=== PATIENT | female | born 1930 | race Caucasian/White ===

== ENCOUNTER → 2016-02-16 | Outpatient (CLI) | payer MEDICARE, BC ==
--- NOTE | 2016-02-16 08:18 | CT ---
EXAMINATION TYPE: CT abdomen wo con DATE OF EXAM: 02/16/2016 7:41 AM HISTORY: Frequent UTIs, calculus of kidney per order CT DLP: 340.2 mGycm. Automated Exposure Control for Dose Reduction was Utilized. TECHNIQUE: CT scan of the abdomen is performed with oral but without IV contrast. COMPARISON: NONE FINDINGS: Within the limitations of a non-contrast study, the following observations are made. LUNG BASES: Cardiomegaly with biatrial dilatation is present coronary artery calcification is noted. There is some basilar linear atelectasis and/or fibrosis. LIVER/GB: Cholecystectomy clips are noted. PANCREAS: No significant abnormality is seen. SPLEEN: No significant abnormality is seen. ADRENALS: No significant abnormality is seen. KIDNEYS: Some cortical thinning is identified in both kidneys. There is a prominent staghorn type hayley culus involving mid to lower pole calyx and collecting system and the right kidney. This measures up to 3.2 cm on long axis on coronal image 46. There are 2 additional punctate calculi seen in upper and lower pole calyces on coronal image 52 and 53. No left-sided nephrolithiasis is seen. No hydronephro sis is identified. BOWEL: There is left lower quadrant colostomy noted. No bowel obstruction is seen. LYMPH NODES: No greater than 1cm abdominal lymph nodes are appreciated. OSSEOUS STRUCTURES: Osseous structures are demineralized. There is multilevel moderate to severe spur ring throughout the spine which is straightened. Multilevel disc space narrowing is also present. The re is grade 1 anterolisthesis of L5 on S1. Prominent facet arthropathy lower lumbar levels is seen. P ostsurgical changes is present posteriorly. OTHER: There is moderate calcified atherosclerotic change of aorta and branch vessels. IMPRESSION: There is dominant staghorn type calculus mid to lower pole level right kidney confirmed. Cortical thinning bilaterally is consistent with product of chronic medical renal disease.
== END | disposition home or self-care (01) ==
LOC: RADCTMAIN 06:57
PROVIDERS: ATTEND Urology
DX: N20.0 Calculus of kidney (principal)
CPT/HCPCS: 74150

== ENCOUNTER → 2016-02-20 | Outpatient (CLI) | payer MEDICARE, BC ==
[2016-02-20 11:10] LABS: EKG EKG PERFORMED
[2016-02-20 12:14] LABS: Appearance,Urine Clear (Clear); Bacteria,Urine Rare /hpf; Bilirubin,Urine Negative (Negative); Glucose,Urine (UA) Negative (Negative); Ketones,Urine Negative (Negative); Leukocyte Esterase,Urine Small (Negative); Nitrite,Urine Negative (Negative); Particle Count 2010; Protein,Urine Trace (Negative); RBC,Urine 17 /hpf (0-5); Specific Gravity,Urine 1.011 (1.001-1.035); Squamous Epithelial Cell,Urine 1 /hpf (0-4); UA Billing (MACRO vs. MICRO) MICRO; Urobilinogen,Urine <2.0 mg/dL (<2.0); WBC,Urine 5 /hpf (0-5)
[2016-02-20 12:18] LABS: Basophils # (A) 0.1 k/uL (0-0.2); Basophils % (A) 1 %; CH 29.2; CHCM 31.1; Eosinophils # (A) 0.2 k/uL (0-0.7); Eosinophils % (A) 2 %; HCT 46.7 % (34.0-46.0); HDW 2.31; HGB 14.5 gm/dL (11.4-16.0); Hypochromasia Slight; Luc # (Auto) 0.27; Luc % (Auto) 3; Lymphocytes # (A) 3.4 k/uL (1.0-4.8); Lymphocytes % (A) 35 %; MCH 29.2 pg (25.0-35.0); MCHC 31.1 g/dL (31.0-37.0); Monocytes # (A) 0.6 k/uL (0-1.0); Monocytes % (A) 6 %; Neutrophils # (A) 5.3 k/uL (1.3-7.7); Neutrophils % (A) 54 %; RBC 4.97 m/uL (3.80-5.40); RDW 14.2 % (11.5-15.5); WBC 9.9 k/uL (3.8-10.6); WBC (Perox) 10.09
[2016-02-20 12:29] LABS: ALT 48 U/L (9-52); AST 37 U/L (14-36); Alkaline Phosphatase 139 U/L (38-126); Anion Gap 12 mmol/L; Blood Urea Nitrogen 22 mg/dL (7-17); Calcium 10.2 mg/dL (8.4-10.2); Carbon Dioxide 28 mmol/L (22-30); Chloride 103 mmol/L (98-107); Glucose 130 mg/dL (74-99); Non-African American GFR(MDRD) 47 (>60 ml/min/1.73 sqM); Potassium 5.7 mmol/L (3.5-5.1); Sodium 143 mmol/L (137-145); Total Bilirubin 0.8 mg/dL (0.2-1.3); Total Protein 7.3 g/dL (6.3-8.2)
--- NOTE | 2016-02-20 14:47 | XR ---
EXAMINATION TYPE: XR chest 2V DATE OF EXAM: 02/20/2016 11:41 AM COMPARISON: NONE HISTORY: Preop TECHNIQUE: Frontal and lateral views of the chest are obtained. FINDINGS: Patient is rotated. Accentuation of the heart size may be at least in part due to rotation . Surgical clips are present in the upper abdomen. No pneumonia, pneumothorax, pleural effusion, post op changes noted to the right shoulder. Scoliotic curvature noted in the spine, there are degenerativ e disc changes. IMPRESSION: No acute cardiopulmonary process. Question borderline cardiac size.
== END | disposition home or self-care (01) ==
LOC: LABPAT 10:51
PROVIDERS: ATTEND Urology
DX: Z01.810 Encounter for preprocedural cardiovascular examination (principal); Z01.812 Encounter for preprocedural laboratory examination; N20.0 Calculus of kidney; E11.9 Type 2 diabetes mellitus without complications; I10 Essential (primary) hypertension; R07.9 Chest pain, unspecified; R35.0 Frequency of micturition
CPT/HCPCS: 71020; 80053; 81001; 85025; 86850; 86900; 86901; 87086; 93005

== ENCOUNTER 2016-02-27 09:51 | Inpatient (IN) | payer MEDICARE, BC ==
[2016-02-19 17:34] VITALS: BMI 29.9
[~2016-02-27 09:51] MED LIST: GENTAMICIN 120 MG in SODIUM CHLORIDE 0.9% 100 ML IVPB ONE; MIDAZOLAM 2 MG/2 ML VIAL IV PRN
--- NOTE | 2016-02-27 09:51 | XR ---
EXAMINATION TYPE: XR KUB DATE OF EXAM ORDERED: 02/27/2016 9:45 AM HISTORY: Nephrolithiasis. COMPARISON: None. FINDINGS: There has been a previous cholecystectomy. There has been previous pelvic surgery. There is an elongated 1.4 x 0.4 cm calculus overlying the lower pole of the right kidney. There is a small calcification in the left upper quadrant which may relate to the spleen. There are p hleboliths within the pelvis. There is a mild dextroscoliosis and there are spondylosis deformans within the lumbar spine. IMPRESSION: 1. STAGHORN CALCULUS OF THE RIGHT KIDNEY. 2. 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 3. DEXTROSCOLIOSIS WITH FAIRLY MARKED DEGENERATIVE CHANGE WITHIN THE SPINE.
[2016-02-27 11:00] LABS: Glucose,Whole Blood 120 mg/dL (75-99)
[2016-02-27] MEDS: LACTATED RINGERS 1,000 ML IV SCH (11:14)
[2016-02-27 11:16] LABS: INR 1.1 (<1.1); Prothrombin Time 10.9 sec (9.0-12.0)
[2016-02-27] MEDS: ONDANSETRON 4 MG/2 ML VIAL IVP ONE ×2 (11:19→13:50)
[2016-02-27] MEDS ORDERED: SUCCINYLCHOLINE CHLORIDE 100 MG/5 ML SYR IV ONE (11:25)
[2016-02-27] MEDS ORDERED: NEOSTIGMINE 1 MG/ML 10 ML VIAL ONE (11:25)
[2016-02-27] MEDS ORDERED: MIDAZOLAM 2 MG/2 ML VIAL ONE (11:25)
[2016-02-27] MEDS ORDERED: ROCURONIUM BROMIDE 10 MG/ML 10 ML VIAL IV ONE (11:25)
[2016-02-27] MEDS ORDERED: PROPOFOL 10 MG/ML 20 ML VIAL IV ONE (11:25)
[2016-02-27] MEDS ORDERED: GLYCOPYRROLATE 0.2 MG/ML 2 ML VIAL ONE (11:25)
[2016-02-27] MEDS ORDERED: LIDOCAINE 1% INJ 10MG/ML (20 ML MDV) ONE (11:25)
[2016-02-27] MEDS ORDERED: fentaNYL (PF) 50 MCG/ML 2 ML AMP ONE (11:25)
[2016-02-27] MEDS ORDERED: ePHEDrine 50 MG/ML 1 ML AMP ONE (11:25)
[2016-02-27] MEDS ORDERED: IOHEXOL 300 MG/ML 50 ML BOTTLE MISCELLANE ONE (12:07)
[2016-02-27] MEDS ORDERED: LACTATED RINGERS 1,000 ML IV ONE (12:38)
[2016-02-27] MEDS ORDERED: MAG HYDROX/AL HYDROX/SIMETH 30 ML CUP PO PRN (13:37)
[2016-02-27] MEDS ORDERED: ACETAMINOPHEN TAB 325 MG TAB PO PRN (13:37)
[2016-02-27] MEDS ORDERED: PROCHLORPERAZINE SUPPOSITORY 25 MG SUPP RECTAL PRN (13:38)
[2016-02-27] MEDS ORDERED: HYDROmorphone PCA 5 MG/25 ML SYRINGE IV PRN (13:38)
[2016-02-27] MEDS ORDERED: METOCLOPRAMIDE 5 MG/ML 2 ML VIAL IVP PRN (13:38)
[2016-02-27] MEDS ORDERED: ONDANSETRON 4 MG/2 ML VIAL IVP PRN (13:38)
[2016-02-27] MEDS ORDERED: MAGNESIUM HYDROXIDE 2,400 MG/10 ML CUP PO PRN (13:38)
[2016-02-27] MEDS ORDERED: NALOXONE 0.4 MG/ML 1 ML VIAL IV PRN (13:38)
[2016-02-27] MEDS ORDERED: PANTOPRAZOLE 40 MG TABLET PO STA (13:40)
--- NOTE | 2016-02-27 13:46 | P.OP ---
Date of Procedure: 02/27/16 Preoperative Diagnosis: Infected Staghorn calculus right Postoperative Diagnosis: Same Procedure(s) Performed: Cystoscopy, placement of occluding balloon catheter, 5-Syrian, percutaneous nephrostomy (Dr. Marino) percutaneous nephrostolithotomy with ultrasound, placement of 10-Syrian J nephrostomy Anesthesia: PABLO Surgeon: Ranulfo White Estimated Blood Loss (ml): 200 Pathology: other (Stone) Condition: stable Disposition: PACU Indications for Procedure: The patient is an 85-year-old female with recurrent urine infection with Proteus mirabilis. Upper tract evaluation identified a large partial staghorn calculus in the right kidney. She comes for percutaneous nephrostolithotomy Description of Procedure: The patient is brought to the operating suite and given a successful general endotracheal anesthesia. She's placed in a frog position on the transport gurney with a sterile prep and drape. Cystoscopy a Foroblique lens and 21- Syrian sheath identifies the right ureteral orifice which was intubated with a 5 -Syrian occluding balloon catheter and with the assistance of an 025 wire passed up into the renal pelvis. It is secured to a Li catheter. The patient is placed in a prone position with care to airways and extremities. Dr. Marino of radiology performed percutaneous nephrostomy to a right lower polecalyx. I dilate the tract to 30-Syrian and place a 30-Syrian working sheath. I introduced the rigid nephroscope and remove clot. The stone is seen in the lower pole calyx. With the ultrasound I slowly break up and suction out the very soft struvite stone up. I slowly advanced the scope through the calyces into the renal pelvis were the bulk of the stone was identified and removed. I then pass the flexible nephroscope throughout the collecting system removing small fragments up. I looked down the ureter. I look in the upper mid and lower pole calyces and remove any remaining fragments. At the end of the procedure there is no remaining stone either endoscopically or fluoroscopically. Over the working wire a 10-Syrian J nephrostomy tube was placed and coils in the renal pelvis. It is secured to the skin with 2-0 silk. His position is confirmed radiographically. The working wire and ureteral catheter removed. The patient's awakened and returned recovery room good condition. Blood loss is approximately 200 mL. The patient will be placed in the hospital postoperatively.
[2016-02-27 13:55] VITALS: RESP 16
--- NOTE | 2016-02-27 14:12 | FL ---
EXAMINATION TYPE: FL Perc Nephrostomy New Access DATE OF EXAM: 02/27/2016 1:35 PM COMPARISON: CT scan 16 February 2016 HISTORY: Right-sided nephrolithiasis PROCEDURE: Maximal barrier technique was utilized. The skin overlying the right kidney was localized using fluo roscopy and the overlying skin prepped and draped. Lidocaine used for local anesthesia. Skin rosalina w as made with a scalpel. Access was gained under fluoroscopy, following placement of a ureteral occlu jordin balloon by the referring clinician and instillation of air in the renal collecting system with a 21-gauge needle to the kidney. A suitable posterior calyx was chosen. A 0.018 inch wire was OneShift. The access site was dilated and subsequently a sheath was advanced into the renal pelvis follow ing dilation with balloon along the tract. Urine returned in the hub of the catheter. The patient und erwent nephrolithotomy by the referring clinician. The patient remained in stable condition without complication. The patient was discharged to observation. IMPRESSION: STATUS POST NEPHROSTOMY PLACEMENT FOR NEPHROLITHOTOMY WITH FLUOROSCOPIC GUIDANCE. THIS PROCEDURE PER FORMED BY THE UNDERSIGNED.
[2016-02-27] MEDS: KETOROLAC 30 MG/ML 1 ML VIAL IVP SCH ×2 (16:08→23:36)
[2016-02-27] MEDS: METOPROLOL TARTRATE 25 MG TAB PO SCH (16:09)
[2016-02-27] MEDS: DEXTROSE 5%-0.45% NACL 1,000 ML IV SCH ×2 (16:59→23:40)
[2016-02-27] MEDS: SULFAMETHOX-TMP 800-160MG 1 EACH TAB PO SCH (20:44)
[2016-02-27] MEDS: PRAVASTATIN SODIUM 20 MG TAB PO SCH (20:44)
[2016-02-28] MEDS: KETOROLAC 30 MG/ML 1 ML VIAL IVP SCH ×4 (05:44→23:27)
[2016-02-28] MEDS: LACTATED RINGERS 1,000 ML IV SCH (09:00)
[2016-02-28] MEDS: METOPROLOL TARTRATE 50 MG TAB PO SCH (09:02)
[2016-02-28] MEDS: amLODIPine 5 MG TAB PO SCH (09:02)
[2016-02-28] MEDS: POTASSIUM CHLORIDE ER 10 MEQ TAB.ER.PRT PO SCH ×2 (09:02→09:07)
[2016-02-28] MEDS: SULFAMETHOX-TMP 800-160MG 1 EACH TAB PO SCH ×2 (09:02→21:01)
[2016-02-28] MEDS: FUROSEMIDE 40 MG TAB PO SCH ×2 (09:02→09:07)
[2016-02-28] MEDS: LOSARTAN 50 MG TAB PO SCH (09:02)
[2016-02-28] MEDS: DEXTROSE 5%-0.45% NACL 1,000 ML IV SCH ×3 (09:03→23:24)
[2016-02-28] MEDS: ALLOPURINOL 100 MG TAB PO SCH (09:03)
[2016-02-28] MEDS ORDERED: HYDROcodone/APAP 5-325MG 1 EACH TAB PO PRN (09:41)
--- NOTE | 2016-02-28 09:46 | P.DS ---
Providers Date of admission: 02/27/16 09:51 Attending physician: Ranulfo White [facility] Course: The patient was admitted for recurrent infections and has a partial staghorn calculus in her right kidney. She underwent a percutaneous nephrostolithotomy . She had an onset eventful evening. Her pain is minimal at best. Her urine is clearing nicely. I will discontinue her Li and IV fluids. I' ll place on oral pain medicine. If she can ambulate, feed herself and use the bathroom and she can be discharged home later today in care of her family regular diet limited activity. She will home with her nephrostomy tube. She' ll be seen in the office in 72 hours for nephrostomy tube removal. Patient Condition at Discharge: Good Plan - Discharge Summary New Discharge Prescriptions: Hydrocodone/Acetaminophen [Lorcet 5-325 mg Tablet] 1 tab PO Q4HR PRN #20 tab PRN Reason: Pain Discharge Medication List Allopurinol [Allopurinol] 100 mg PO DAILY 02/19/16 [History] Ascorbic Acid [Vitamin C] 500 mg PO DAILY 02/19/16 [History] Cholecalciferol [Vitamin D3] 1,000 unit PO DAILY 02/19/16 [History] Cyanocobalamin (Vitamin B-12) [Vitamin B12] 5,000 mcg PO DAILY 02/19/16 [History ] Ferrous Sulfate [Feosol] 325 mg PO DAILY 02/19/16 [History] Furosemide [Furosemide] 40 mg PO DAILY 02/19/16 [History] Losartan Potassium [Losartan Potassium] 50 mg PO DAILY 02/19/16 [History] Metoprolol Tartrate [Metoprolol Tartrate] 25 mg PO DAILY@1700 02/19/16 [History] Metoprolol Tartrate [Metoprolol Tartrate] 50 mg PO DAILY 02/19/16 [History] Multivitamins, Thera [Multivitamin] 1 tab PO DAILY 02/19/16 [History] Naproxen Sodium [Aleve] 220 mg PO BID PRN 02/19/16 [History] Nateglinide [Starlix] 60 mg PO BID@1200,1700 02/19/16 [History] Potassium Chloride [Klor-Con 10] 10 meq PO DAILY 02/19/16 [History] Pravastatin Sodium [Pravastatin Sodium] 20 mg PO HS 02/19/16 [History] Warfarin Sodium [Warfarin Sodium] 2.5 mg PO SUMOTUFRSA 02/19/16 [History] amLODIPine BESYLATE [Amlodipine Besylate] 5 mg PO DAILY 02/19/16 [History] Hydrocodone/Acetaminophen [Lorcet 5-325 mg Tablet] 1 tab PO Q4HR PRN #20 tab [Rx] Follow up Appointment(s)/Referral(s): Ranulfo White MD [STAFF PHYSICIAN] - 03/02/16 Activity/Diet/Wound Care/Special Instructions: Home with nephrostomy tube
[2016-02-28] MEDS ORDERED: ASCORBIC ACID 500 MG TAB PO SCH (12:00)
[2016-02-28] MEDS ORDERED: MULTIVITAMINS, THERA 1 EACH TAB PO SCH (12:00)
[2016-02-28] MEDS ORDERED: CHOLECALCIFEROL 1,000 UNIT TAB PO SCH (12:00)
[2016-02-28] MEDS ORDERED: FERROUS SULFATE 325 MG TAB PO SCH (12:00)
[2016-02-28] MEDS: METOPROLOL TARTRATE 25 MG TAB PO SCH (17:02)
[2016-02-28] MEDS: PRAVASTATIN SODIUM 20 MG TAB PO SCH (21:01)
[2016-02-28] MEDS: INSULIN LISPRO (humaLOG) 300 UNIT/3 ML VIAL SQ SCH (21:04)
[2016-02-28 21:05] LABS: Glucose,Whole Blood 146 mg/dL (75-99)
[2016-02-29] MEDS: LACTATED RINGERS 1,000 ML IV SCH (02:28)
[2016-02-29] MEDS: KETOROLAC 30 MG/ML 1 ML VIAL IVP SCH (06:20)
[2016-02-29] MEDS: INSULIN LISPRO (humaLOG) 300 UNIT/3 ML VIAL SQ SCH (08:27)
[2016-02-29] MEDS: SULFAMETHOX-TMP 800-160MG 1 EACH TAB PO SCH (08:28)
[2016-02-29] MEDS: FUROSEMIDE 40 MG TAB PO SCH (08:28)
[2016-02-29] MEDS: ALLOPURINOL 100 MG TAB PO SCH (08:28)
[2016-02-29] MEDS: amLODIPine 5 MG TAB PO SCH (08:28)
[2016-02-29] MEDS: LOSARTAN 50 MG TAB PO SCH (08:28)
[2016-02-29] MEDS: METOPROLOL TARTRATE 50 MG TAB PO SCH (08:28)
[2016-02-29] MEDS: POTASSIUM CHLORIDE ER 10 MEQ TAB.ER.PRT PO SCH (08:29)
[2016-02-29 08:40] LABS: Glucose,Whole Blood 103 mg/dL (75-99)
--- NOTE | 2016-02-29 09:32 | P.PN ---
Subjective The patient is in her second day from a right percutaneous nephrostolithotomy. She did not feel well enough to go home yesterday. She feels much better this morning and is ready for discharge home. She'll be discharged home care of family regular diet limited activity. She will resume her home medications but not the Coumadin. She will continue the Bactrim at home. She will follow-up in the office on Tuesday for nephrostomy tube removal. Condition is good, diet is regular. Activity is limited. Objective - Vital Signs Vital signs: Vital Signs Temp 97.1 F L 02/29/16 03:02 Pulse 64 02/29/16 03:02 Resp 16 02/29/16 03:02 BP 126/56 02/29/16 03:02 Pulse Ox 97 02/29/16 03:02 Intake & Output 02/28/16 02/29/16 02/29/16 18:59 06:59 18:59 Intake Total 1520 Output Total 1400 50 Balance 120 -50 Intake: Intake, IV Titration 800 Amount Dextrose 5%-0.45% NaCl 1, 800 000 ml @ 100 mls/hr IV . Q10H FRANK Rx#:[id number] Oral 720 Output: Drainage 800 50 Right Lower Back 800 50 Urine 600 Uretheral (Li) 600 Other: Voiding Method Indwelling Catheter # Voids 1 1 - Labs CBC & Chem 7: 02/27/16 10:54 Labs: Abnormal Lab Results - Last 24 Hours (Table) 02/28/16 02/29/16 Range/Units 21:03 08:27 POC Glucose (mg/dL) 146 H 103 H (75-99) mg/dL
[2016-02-29 10:04] VITALS: BP 133/59; PULSE 60; TEMP 98.3
[2016-02-29 13:35] LABS: Hemoglobin A1C 6.9 % (4.2-6.1)
== END 2016-02-29 12:04 | disposition home or self-care (01) | DRG 660 ==
LOC: 2ORMAIN 09:51 → 3SUR 13:37
PROVIDERS: ADMIT Urology; ATTEND Urology
PROC: 0TC08ZZ Extirpation of Matter from Right Kidney, Via Natural or Artificial Opening Endoscopic (ICD-10-PCS; principal; 2016-02-27 11:00)
PROC: 0T9030Z Drainage of Right Kidney with Drainage Device, Percutaneous Approach (ICD-10-PCS; principal; 2016-02-27 11:00)
DX: N20.0 Calculus of kidney (principal); N39.0 Urinary tract infection, site not specified; I48.91 Unspecified atrial fibrillation; E11.9 Type 2 diabetes mellitus without complications; I10 Essential (primary) hypertension; Z79.01 Long term (current) use of anticoagulants; Z79.899 Other long term (current) drug therapy; Z88.0 Allergy status to penicillin; M19.90 Unspecified osteoarthritis, unspecified site; M10.9 Gout, unspecified
CPT/HCPCS: 50432; 74000; 82365; 83036; 84132; 85610; 86850; 86900; 86901

== ENCOUNTER → 2016-07-26 | Outpatient (CLI) | payer MEDICARE, BC ==
[2016-07-26 11:41] LABS: INR 2.4 (<1.1); Prothrombin Time 23.5 sec (9.0-12.0)
== END | disposition home or self-care (01) ==
LOC: LABWHC1 09:57
PROVIDERS: ATTEND Internal Medicine
DX: I48.91 Unspecified atrial fibrillation (principal)
CPT/HCPCS: 36415; 85610

== ENCOUNTER → 2016-09-20 | Outpatient (CLI) | payer MEDICARE, BC ==
[2016-09-20 11:04] LABS: Basophils # (A) 0.1 k/uL (0-0.2); Basophils % (A) 1 %; CHCM 31.9; Eosinophils # (A) 0.3 k/uL (0-0.7); Eosinophils % (A) 2 %; HCT 45.8 % (34.0-46.0); HDW 2.49; HGB 14.4 gm/dL (11.4-16.0); Luc # (Auto) 0.33; Luc % (Auto) 3; Lymphocytes # (A) 3.5 k/uL (1.0-4.8); Lymphocytes % (A) 31 %; MCH 29.7 pg (25.0-35.0); MCHC 31.4 g/dL (31.0-37.0); MCV 94.5 fL (80.0-100.0); Mean Platelet Volume 8.1; Monocytes # (A) 0.7 k/uL (0-1.0); Monocytes % (A) 6 %; Neutrophils # (A) 6.4 k/uL (1.3-7.7); Neutrophils % (A) 57 %; RBC 4.85 m/uL (3.80-5.40); RDW 15.6 % (11.5-15.5); WBC 11.2 k/uL (3.8-10.6); WBC (Perox) 11.13
[2016-09-20 11:29] LABS: ALT 41 U/L (9-52); AST 31 U/L (14-36); Alkaline Phosphatase 118 U/L (38-126); Anion Gap 9 mmol/L; Blood Urea Nitrogen 16 mg/dL (7-17); Calcium 9.5 mg/dL (8.4-10.2); Carbon Dioxide 29 mmol/L (22-30); Chloride 104 mmol/L (98-107); Cholesterol 114 mg/dL (<200); Glucose 119 mg/dL (74-99); HDL Cholesterol 48 mg/dL (40-60); Magnesium 1.9 mg/dL (1.6-2.3); Non-African American GFR(MDRD) >60 (>60 ml/min/1.73 sqM); Phosphorous 3.6 mg/dL (2.5-4.5); Potassium 4.1 mmol/L (3.5-5.1); Sodium 142 mmol/L (137-145); Total Bilirubin 1.1 mg/dL (0.2-1.3); Uric Acid 5.4 mg/dL (3.7-7.4)
== END ==
LOC: LABWHC1 10:20
PROVIDERS: ATTEND Internal Medicine
DX: Z00.00 Encounter for general adult medical examination without abnormal findings (principal); I48.91 Unspecified atrial fibrillation; E55.9 Vitamin D deficiency, unspecified; D64.9 Anemia, unspecified; J44.9 Chronic obstructive pulmonary disease, unspecified; E11.9 Type 2 diabetes mellitus without complications; E78.5 Hyperlipidemia, unspecified; E21.3 Hyperparathyroidism, unspecified; E03.9 Hypothyroidism, unspecified; M81.0 Age-related osteoporosis without current pathological fracture; Z51.81 Encounter for therapeutic drug level monitoring; Z79.01 Long term (current) use of anticoagulants
CPT/HCPCS: 36415; 80053; 80061; 82306; 83036; 83735; 83970; 84100; 84439; 84443; 84550; 85025

== ENCOUNTER → 2017-03-31 | Outpatient (CLI) | payer MEDICARE, BC ==
[2017-03-31 15:08] LABS: Blood Urea Nitrogen 22 mg/dL (7-17)
--- NOTE | 2017-03-31 15:54 | CT ---
EXAMINATION TYPE: CT chest w con DATE OF EXAM: 03/31/2017 COMPARISON: NONE HISTORY: Solitary nodule of lung. CT DLP: 384.9 mGycm, Automated exposure control for dose reduction was used. CONTRAST: Performed injected with 100 mL of Omnipaque 300. TECHNIQUE: Axial images were obtained at 5 mm thick sections. Reconstructed images are reviewed on [employer] computer in the coronal plane. FINDINGS: Portion of the thyroid visualized is normal. There is some streak opacity within the lingula suspected to be atelectasis there is some thickening along the major fissure near the right base. Series 4 image 32. This is approximately 0.7 cm in thick ness. No enlarged mediastinal or hilar adenopathy is evident. The ascending aorta diameter at the level o f the main pulmonary artery is 3.7 cm. The main pulmonary artery diameter at the bifurcation is 2.[address] sections are obtained through the upper abdomen. There is a 2.3 cm cyst measuring 34 Houns field unit superior lateral right kidney. Pancreas appears atrophic. IMPRESSIONS: 1. Mild nonspecific findings. Consider follow-up CT chest in 6 months to evaluate stability.
== END | disposition home or self-care (01) ==
LOC: RADCTMAIN 14:24
PROVIDERS: ATTEND Internal Medicine
DX: R91.1 Solitary pulmonary nodule (principal)
CPT/HCPCS: 82565; 84520; 71260; 36415; Q9967

== ENCOUNTER → 2017-04-04 | Outpatient (CLI) | payer MEDICARE, BC ==
--- NOTE | 2017-04-04 15:06 | MM ---
Reason for exam: clinical finding. Last mammogram was performed 9 years and 5 months ago. History: Patient is postmenopausal and history of other cancer. Indicated problem(s): large axillary lymph nodes in the left breast. Physical Findings: Nurse did not find any significant physical abnormalities on exam. MG 3D Diag Mammo W/Cad SATURNINO Bilateral CC and MLO view(s) were taken. No prior studies available for comparison. There are scattered fibroglandular densities. Finding: There are typically benign diffuse/scattered calcifications in both breasts. No suspicious abnormality. These results were verbally communicated with the patient and result sheet given to the patient on 04/04/17. ASSESSMENT: Incomplete: need additional imaging evaluation, BI-RAD 0 RECOMMENDATION: Ultrasound of the left breast. (axillary at physician palpable abnormality)
--- NOTE | 2017-04-05 07:06 | USB ---
Reason for exam: additional evaluation requested from abnormal screening. History: Patient is postmenopausal and history of other cancer. US Breast Axilla LT Left breast ultrasound including axilla demonstrates a 9mm oval lymph node with largely fatty cortex, non enlarged at the axilla. These results were verbally communicated with the patient and result sheet given to the patient on 04/04/17. ASSESSMENT: Benign, BI-RAD 2 RECOMMENDATION: Routine screening mammogram of both breasts in 1 year.
== END | disposition home or self-care (01) ==
LOC: RADMAMWWP 13:41
PROVIDERS: ATTEND Internal Medicine
DX: R59.0 Localized enlarged lymph nodes (principal); R92.8 Other abnormal and inconclusive findings on diagnostic imaging of breast
CPT/HCPCS: 77066; 76642; G0279

== ENCOUNTER → 2017-12-12 | Outpatient (CLI) | payer MEDICARE, BC ==
[2017-12-12 18:25] LABS: Hemoglobin A1C 8.3 % (4.0-6.0)
== END | disposition home or self-care (01) ==
LOC: LABWHC1 09:43
PROVIDERS: ATTEND Internal Medicine
DX: E11.9 Type 2 diabetes mellitus without complications (principal)
CPT/HCPCS: 36415; 82947; 83036